=== PATIENT | female | born 1990 | race Hispanic/Latino ===

== ENCOUNTER 2020-09-23 02:04 | Emergency (ER) | payer OTHER, SELFPAY ==
[2020-09-23 02:08] VITALS: BP 144/90; PULSE 63; RESP 20; TEMP 36.9; O2SAT 96
--- NOTE | 2020-09-23 02:21 | ED.GENADULT ---
HPI - General Adult General Chief complaint: Headache Stated complaint: Headache, upper epigastric pain Time Seen by Provider: 09/23/20 02:14 History of Present Illness HPI narrative: Patient with 10-year-old female presents to emergency department chief complaint of headache. Patient reports that today she started having pain in her head reports she had a little bit of nausea with it reports she has photophobia. Patient also reports that he has had epigastric discomfort that she states does not radiate. The patient reports she has prior history of migraines history of Crohn's. The patient denies prior surgical history reports that she ate a tostada. Related Data Allergies Allergy/AdvReac Type Severity Reaction Status Date / Time No Known Allergies Allergy Unknown Unverified 09/29/15 23:15 Review of Systems Review of Systems: Narrative: A 10 system review of systems was completed on the patient and is negative except for what is stated in the HPI. Nursing and ancillary documentation was reviewed. [facility] Family History Family History (Updated 02/04/14 @ 07:13 by DOCTOR UNKNOWN) Father Family history of gout Family history of psoriasis Social History Social History Smoking status: Never smoker Alcohol intake: never Gender identity (if verbalized by the patient): Female Comments Crohn's migraines Exam Narrative: Exam Narrative: GENERAL: Well-appearing, well-nourished, and in no acute distress. HEAD: Normocephalic, atraumatic. EYES: PERRLA and EOMI. ENT: Nares clear, no rhinorrhea or epistaxis. Mucous membranes moist. NECK: Supple. CHEST: Clear to auscultation. No respiratory distress. HEART: Regular rate and rhythm. No murmur heard. Normal peripheral pulses. ABDOMEN: Soft, nontender, nondistended, normal active bowel sounds. EXTREMITIES: Normal range of motion. No edema. SKIN: Warm, dry, no rash. NEURO: No focal deficits. Alert and oriented x3. PSYCH: Normal mood and affect. Course Vital Signs Vital signs: Vital Signs Temperature 36.9 C 09/23/20 02:08 Pulse Rate 63 09/23/20 02:08 Respiratory Rate 20 09/23/20 02:08 Blood Pressure 144/90 H 09/23/20 02:08 Pulse Oximetry 96 09/23/20 02:08 Temperature 36.9 C 09/23/20 02:08 Pulse Rate 63 09/23/20 02:08 Respiratory Rate 20 09/23/20 02:08 Blood Pressure 144/90 H 09/23/20 02:08 Pulse Oximetry 96 09/23/20 02:08 Medical Decision Making Vital Signs Vital Signs: Vital Signs Temperature 36.9 C 09/23/20 02:08 Pulse Rate 63 09/23/20 02:08 Respiratory Rate 20 09/23/20 02:08 Blood Pressure 144/90 H 09/23/20 02:08 Pulse Oximetry 96 09/23/20 02:08 Temperature 36.9 C 09/23/20 02:08 Pulse Rate 63 09/23/20 02:08 Respiratory Rate 20 09/23/20 02:08 Blood Pressure 144/90 H 09/23/20 02:08 Pulse Oximetry 96 09/23/20 02:08 Lab Data Result diagrams: 09/23/20 02:43 09/23/20 02:42 Labs: Lab Results 09/23/20 09/23/20 09/23/20 Range/Units 02:42 02:43 03:01 WBC 8.2 (4.5-10.0) K/mm3 RBC 4.20 (4.2-5.4) M/mm3 Hgb 12.7 (12.0-15.0) g/dL Hct 37.7 (37.0-47.0) % MCV 89.8 (80-100) fl MCH 30.2 (26-34) pg MCHC 33.7 (32-36) g/dl RDW 12.8 (11.5-14.5) % Plt Count 223 (150-375) k/mm3 MPV 10.4 (7.4-10.4) fl Immature Gran % (Auto) 0.6 H (0-0.5) % Neut % (Auto) 45.0 L (45.5-73.1) % Lymph % (Auto) 44.5 H (18.3-44.2) % Iron % (Auto) 6.6 (2.6-8.5) % Eos % (Auto) 2.9 (0-4.4) % Baso % (Auto) 0.4 (0.2-1.2) % Lymph # (Auto) 3.66 H (0.9-3.2) K/mm3 Iron # (Auto) 0.5 (0.1-0.6) K/mm3 Eos # (Auto) 0.2 (0-0.3) K/mm3 Baso # (Auto) 0.0 (0.0-0.1) K/mm3 Abs Immat Gran (auto) 0.05 H (0.00-0.031) K/mm3 Absolute Neuts (auto) 3.7 (1.3-6.7) K/mm3 Absolute Nucleated RBC 0.0 (0.0-0.012) K/mm3 Nucleated RBC % 0.0 (0.0-0.2) % Sodium 139 (137-145) mmol/L [place]
[2020-09-23] MEDS: SODIUM CHLORIDE 0.9% IV 1,000 ML 999 ML IV CONT (02:33)
[2020-09-23] MEDS: diphenhydrAMINE HCl INJ 50 MG/ML VIAL IV PUSH (02:33)
[2020-09-23] MEDS: KETOROLAC 30 MG/ML VIAL (*BKC) IV PUSH (02:33)
[2020-09-23] MEDS: PROCHLORPERAZINE EDISYLATE 10 MG/2 ML VIAL IV PUSH (02:46)
[2020-09-23 02:52] LABS: Basophils Percent Auto 0.4 % (0.2-1.2); Eosinophils Absolute Auto 0.2 K/mm3 (0-0.3); Eosinophils Percent Auto 2.9 % (0-4.4); Hematocrit 37.7 % (37.0-47.0); Hemoglobin 12.7 g/dL (12.0-15.0); Immature Granulocyte Absolute 0.05 K/mm3 (0.00-0.031); Immature Granulocyte Percent A 0.6 % (0-0.5); Lymphocytes Absolute Auto 3.66 K/mm3 (0.9-3.2); Lymphocytes Percent Auto 44.5 % (18.3-44.2); Mean Corpuscular HGB Conc 33.7 g/dl (32-36); Mean Corpuscular Hemoglobin 30.2 pg (26-34); Mean Corpuscular Volume 89.8 fl (80-100); Mean Platelet Volume 10.4 fl (7.4-10.4); Monocytes Absolute Auto 0.5 K/mm3 (0.1-0.6); Monocytes Percent Auto 6.6 % (2.6-8.5); Neutrophils Absolute Auto 3.7 K/mm3 (1.3-6.7); Platelet Count Result 223 k/mm3 (150-375); Red Cell Distribution Width 12.8 % (11.5-14.5); White Blood Count 8.2 K/mm3 (4.5-10.0)
[2020-09-23 03:10] LABS: Alanine Aminotransferase 143 U/L (4-35); Albumin Level 4.5 g/dL (3.5-5.1); Alkaline Phosphatase 164 U/L (38-126); Anion Gap 7 mmol/L (8-16); Aspartate Amino Transferase 101 U/L (14-36); Bilirubin,Total 0.3 mg/dL (0.2-1.3); Blood Urea Nitrogen 15 mg/dL (7-17); Calcium 9.4 mg/dL (8.4-10.2); Carbon Dioxide 28 mmol/L (22-30); Chloride 104 mmol/L (98-107); Estimated CRCL calculation 146 ml/min; Estimated Glomerular Filt Rate > 60; Glucose 119 mg/dL (65-105); Lipase 89 U/L (23-300); Potassium 3.6 mmol/L (3.4-5.0); Sodium 139 mmol/L (137-145)
[2020-09-23 03:23] LABS: Add Urine Microscopic? YES; Appearance Urine Cloudy (Clear); Bacteria Urine Trace /hpf; Bilirubin Urine Negative (Negative); Blood Urine 1+ (Negative); Color Urine Yellow (Yellow); Glucose Urine UA Negative (Negative); Ketones Urine Negative (Negative); Leukocyte Esterase Ur Trace LEU/UL (Negative); Mucus Urine Rare /lpf; Nitrate Urine Negative (Negative); Protein Urine Negative (Negative); RBC Urine 0-2 /hpf (0-2); Specific Grav Ur 1.021 (1.001-1.035); Squamous Epithelial Cell Urine Few /hpf (Few); Urobilinogen Urine Negative mg/dL (<2.0); WBC Urine 0-3 /hpf
[2020-09-23 03:26] LABS: Lactic Acid Reflex 1.5 mmol/L (0.7-2.1)
[2020-09-23 03:48] VITALS: BP 128/79; PULSE 71; RESP 16; TEMP 36.9; O2SAT 100
== END 2020-09-23 03:49 | disposition home or self-care (01) ==
PROVIDERS: Emergency Provider Emergency Medicine
DX: G43.909 Migraine, unspecified, not intractable, without status migrainosus (principal)
CPT/HCPCS: 36415; 80053; 81001; 83605; 83690; 85025; 96361; 96374; 96375; 99284; J0780; J1200; J1885; J7030

== ENCOUNTER 2020-12-28 15:48 | Emergency (ER) | payer OTHER, SELFPAY ==
[2020-12-28 16:31] VITALS: BP 122/73; PULSE 87; RESP 16; TEMP 36.1; O2SAT 100
[2020-12-28 17:51] LABS: Basophils Percent Auto 0.4 % (0.2-1.2); Eosinophils Absolute Auto 0.3 K/mm3 (0-0.3); Eosinophils Percent Auto 4.1 % (0-4.4); Hematocrit 39.2 % (37.0-47.0); Immature Granulocyte Absolute 0.04 K/mm3 (0.00-0.031); Immature Granulocyte Percent A 0.5 % (0-0.5); Lymphocytes Absolute Auto 2.69 K/mm3 (0.9-3.2); Lymphocytes Percent Auto 34.4 % (18.3-44.2); Mean Corpuscular HGB Conc 33.2 g/dl (32-36); Mean Corpuscular Hemoglobin 30.1 pg (26-34); Mean Corpuscular Volume 90.7 fl (80-100); Mean Platelet Volume 9.9 fl (7.4-10.4); Monocytes Absolute Auto 0.6 K/mm3 (0.1-0.6); Monocytes Percent Auto 7.4 % (2.6-8.5); Neutrophils Absolute Auto 4.2 K/mm3 (1.3-6.7); Neutrophils Percent Auto 53.2 % (45.5-73.1); Platelet Count Result 233 k/mm3 (150-375); Red Blood Count 4.32 M/mm3 (4.2-5.4); Red Cell Distribution Width 13.1 % (11.5-14.5); White Blood Count 7.8 K/mm3 (4.5-10.0)
[2020-12-28 17:59] LABS: Add Urine Microscopic? YES; Appearance Urine Cloudy (Clear); Bacteria Urine Trace /hpf; Bilirubin Urine Negative (Negative); Blood Urine 1+ (Negative); Color Urine Yellow (Yellow); Glucose Urine UA Negative (Negative); Ketones Urine Negative (Negative); Leukocyte Esterase Ur 1+ LEU/UL (Negative); Mucus Urine Rare /lpf; Nitrate Urine Negative (Negative); Protein Urine Negative (Negative); RBC Urine 0-2 /hpf (0-2); Specific Grav Ur 1.021 (1.001-1.035); Squamous Epithelial Cell Urine Few /hpf (Few); Urobilinogen Urine Negative mg/dL (<2.0); WBC Urine 0-3 /hpf
[2020-12-28 18:01] LABS: Alanine Aminotransferase 102 U/L (4-35); Albumin Level 4.5 g/dL (3.5-5.1); Alkaline Phosphatase 119 U/L (38-126); Anion Gap 11 mmol/L (8-16); Aspartate Amino Transferase 75 U/L (14-36); Bilirubin,Total 0.4 mg/dL (0.2-1.3); Blood Urea Nitrogen 10 mg/dL (7-17); Calcium 9.8 mg/dL (8.4-10.2); Carbon Dioxide 24 mmol/L (22-30); Chloride 105 mmol/L (98-107); Estimated CRCL calculation 124 ml/min; Estimated Glomerular Filt Rate > 60; Glucose 92 mg/dL (65-110); Lipase 75 U/L (23-300); Sodium 140 mmol/L (137-145)
[2020-12-28 18:28] VITALS: BP 109/70; PULSE 76; RESP 15; O2SAT 97
[2020-12-28 18:34] VITALS: BP 107/90; PULSE 76; RESP 15; O2SAT 97
--- NOTE | 2020-12-28 19:10 | PC.NURSE ---
Report to esthela garcia at this time, she has assumed pt care, vss, call light in reach.
--- NOTE | 2020-12-28 19:35 | PC.NURSE ---
updated pt. no requests at this time. call light w/ in reach.
--- NOTE | 2020-12-28 19:36 | ED.ABDPAIN ---
HPI - Abdominal Pain General Chief Complaint: Abdominal Pain Stated Complaint: lower abd pain Time Seen by Provider: 12/28/20 18:20 Source: patient Mode of arrival: ambulatory Limitations: no limitations History of Present Illness HPI narrative: 30-year-old female Here for lower abdominal pain Has a stated history of Crohn's disease and apparently has been on mesalamine and sulfabenzamide previously but is on no medications now Patient states that about 4 hours before my evaluation she had pain in her lower right abdomen which lasted about 20 minutes before essentially being resolved She has some discomfort still with ambulation No other symptoms, denies nausea vomiting diarrhea constipation or bloating, no urinary symptoms dysuria hematuria, last menstrual period was 3 to 4 weeks ago Only surgical history is Related Data Allergies Allergy/AdvReac Type Severity Reaction Status Date / Time mesalamine [From Asacol] Allergy Unknown Verified 12/28/20 18:28 sulfabenzamide Allergy Unknown Verified 12/28/20 18:27 Review of Systems Review of Systems: All systems reviewed & are unremarkable except as noted in HPI and below Constitutional: Constitutional: Reports no additional constitutional complaints, Denies chills, Denies fever(s) and Denies headache(s) Eyes: Eyes: Reports no additional eye complaints and Denies change in vision ENT: Denies headache(s) and Denies sore throat Cardiovascular: Cardiovascular: Denies chest pain and Denies dyspnea Respiratory: Respiratory: Denies cough and Denies dyspnea Gastrointestinal: Gastrointestinal: Reports abdominal pain, Denies bloating, Denies constipation, Denies diarrhea, Denies nausea and Denies vomiting Genitourinary: Genitourinary: Denies abnormal vaginal bleeding, Denies urinary frequency, Denies nocturia, Denies dysuria, Denies pelvic pain, Denies flank pain and Denies vaginal discharge Musculoskeletal: Musculoskeletal: Denies deformity, Denies arthralgias, Denies joint swelling and Denies numbness Integumentary/Breasts: Skin/Breast: Denies rash and Denies wounds Neurologic: Denies headache(s), Denies focal weakness and Denies numbness Psychiatric: Psychiatric: Reports no additional psychiatric complaints Endocrine: Endocrine: Reports no additional endocrine complaints Hematologic/Lymphatic: Hematologic/Lymphatic: Reports no additional hematologic/lymphatic complaints Allergic/Immunologic: Allergic/Immunologic: Reports no additional allergic/immunologic complaints PMFSH Family History Family History (Updated 02/04/14 @ 07:13 by DOCTOR UNKNOWN) Father Family history of gout Family history of psoriasis Social History Social History Smoking status: Never smoker Alcohol intake: never Gender identity (if verbalized by the patient): Female Exam Const: General: cooperative, no acute distress and alert Orientation/consciousness: patient oriented x3 (alert) HENMT: Head: normal to inspection, normocephalic and atraumatic Ears: external ears normal General nose exam: no epistaxis Eyes: Conjunctivae: conjunctivae normal EOM: EOMs intact bilaterally Neck: Neck: normal visual inspection, supple and no JVD Resp: Effort & Inspection: normal respiratory effort and not labored Auscultation: clear to auscultation bilaterally, no rales, no rhonchi, no wheezes and other (BS =) Cardio: Rate: regular rate Rhythm: regular rhythm Heart sounds: no murmurs GI: GI Palp: Yes Soft to palpation, No Tenderness to palpation present (GI), No Guarding due to palpation present (GI) and No Rebound tenderness present : General: Yes no CVA tenderness Skin: General skin exam: normal color and no rashes or lesions noted Neuro: General: patient oriented x3 (alert) and moves all extremities Speech: normal speech Extrem: General: normal to inspection and no pedal edema Psych: Affect: normal affect Course Vital Signs Vital signs: Vital Signs [place]
[2020-12-28 19:40] VITALS: BP 118/66; PULSE 85; RESP 16; O2SAT 98
[2020-12-28 20:10] VITALS: BP 125/76; PULSE 86; RESP 14; O2SAT 98
== END 2020-12-28 20:14 | disposition home or self-care (01) ==
PROVIDERS: Emergency Medicine; Emergency Provider Emergency Medicine
DX: R10.30 Lower abdominal pain, unspecified (principal)
CPT/HCPCS: 36415; 80053; 81001; 81025; 83690; 85025; 99283

== ENCOUNTER 2022-09-05 09:46 | Emergency (ER) | payer OTHER, SELFPAY ==
[2022-09-05 09:49] VITALS: BP 168/103; PULSE 69; RESP 20; TEMP 36.7; O2SAT 100
--- NOTE | 2022-09-05 10:34 | ED.HEATRA ---
HPI - Head Injury General Chief complaint: Head Injury Stated complaint: hi days ago/coles Time Seen by Provider: 09/05/22 10:11 History of Present Illness HPI Narrative: Patient is a 31-year-old female who presents ER with left-sided headache. Patient was bending over while working at her job 4 days ago and struck her head on a door handle. She did not lose consciousness. She had throbbing headache on the left side since then. No change in vision or hearing. No nausea or vomiting. She is not on any blood thinners. No neck discomfort. Related Data Allergies Allergy/AdvReac Type Severity Reaction Status Date / Time mesalamine [From Asacol] Allergy Unknown Verified 12/28/20 18:28 sulfabenzamide Allergy Unknown Verified 12/28/20 18:27 Review of Systems Eyes: Eyes: Denies change in vision and Denies photophobia Gastrointestinal: Gastrointestinal: Denies nausea and Denies vomiting Neurologic: Denies syncope, Reports headache(s), Denies focal weakness and Denies numbness PMFSH Past Medical History Medical History (Updated 09/05/22 @ 10:39 by Saman Boykin MD) Migraine Surgical History Surgical History (Updated 09/05/22 @ 10:39 by Saman Boykin MD) History of delivery Family History Family History (Updated 02/04/14 @ 07:13 by DOCTOR UNKNOWN) Father Family history of gout Family history of psoriasis Social History Social History Smoking status: Never smoker Alcohol intake: never Gender identity (if verbalized by the patient): Female Exam Narrative: GENERAL: Well-appearing, well-nourished, and in no acute distress. HEAD: Normocephalic, atraumatic. EYES: PERRLA and EOMI. ENT: Mucous membranes moist. TMs normal bilaterally. CHEST: Clear to auscultation. No respiratory distress. HEART: Regular rate and rhythm. Normal peripheral pulses. EXTREMITIES: Normal range of motion. No edema. NEURO: Alert and oriented x3. No facial droop. Clear speech. PSYCH: Normal mood and affect. Course Course Emergency Course: Patient resting comfortably. Discussed tension headache versus mild concussion. Patient not felt to need a CT scan of the head and this was explained. Patient verbalized understanding treatment plan. Discharge home. Vital Signs Vital signs: Vital Signs Temperature 98.0 F 09/05/22 09:49 Pulse Rate 69 09/05/22 09:49 Respiratory Rate 20 09/05/22 09:49 Blood Pressure 168/103 H 09/05/22 09:49 Pulse Oximetry 100 09/05/22 09:49 Oxygen Delivery Room Air 09/05/22 09:49 Temperature 98.0 F 09/05/22 09:49 Pulse Rate 69 09/05/22 09:49 Respiratory Rate 20 09/05/22 09:49 Blood Pressure 168/103 H 09/05/22 09:49 Pulse Oximetry 100 09/05/22 09:49 Oxygen Delivery Room Air 09/05/22 09:49 Discharge Plan Discharge Clinical Impression: Concussion Patient Disposition: Home, Self-Care Condition: Stable Instructions: Concussion (ED) Additional Instructions: Return the ER if you lose consciousness, you cannot keep down food or water, develop fever over 100.4 ?F, or you have additional concerns. Take Tylenol or ibuprofen as needed for headache. Follow-up/Referrals: PHYSICIAN,LEARNING SUPPORT ASSISTANT [Primary Care Provider] - Margarita Melvin DO [Physician] - 1 Week
== END 2022-09-05 10:55 | disposition home or self-care (01) ==
PROVIDERS: Emergency Provider Emergency Medicine
DX: S06.0XAA Concussion with loss of consciousness status unknown, initial encounter (principal); W22.09XA Striking against other stationary object, initial encounter; Y99.0 Civilian activity done for income or pay
CPT/HCPCS: 99282

== ENCOUNTER 2023-03-05 18:24 | Emergency (ER) | payer OTHER, SELFPAY ==
[2023-03-05 18:45] VITALS: BP 137/99; PULSE 82; RESP 18; TEMP 36.9; O2SAT 100
== END 2023-03-05 21:18 | disposition left against medical advice (07) ==
DX: R10.13 Epigastric pain (principal)
CPT/HCPCS: 99199

== ENCOUNTER 2025-01-17 18:47 | Emergency (ER) | payer OTHER, SELFPAY ==
--- NOTE | ~2025-01-17 | CT_ITS ---
EXAMINATION: CT abdomen pelvis w con DATE: 01/17/2025 21:10 INDICATION: right sided abd pain TECHNIQUE: Computed tomography (CT) of the abdomen and pelvis was performed with 100 mL Omnipaque-350 intravenous contrast. Automated exposure control and iterative reconstruction technique were employe d. The dose-length product was 1332.43 mGy-cm. COMPARISON: None. FINDINGS: Lower thorax: 3 mm right middle lobe pulmonary nodule, likely granuloma Liver: Normal. Biliary/Gallbladder: Gallbladder is partially contracted, with mild wall thickening, hyperemia, and v palmer slight surrounding stranding. No bile duct dilation. Pancreas: No mass or duct dilation. Spleen: Normal. Adrenals:No mass. Kidneys: No suspicious mass, obstructing stone, or hydronephrosis. GI tract: No small or large bowel dilation. Small uncomplicated appearing diverticulum projecting off the cecum. Normal appendix. Mesentery/Peritoneum: No ascites, mass, or free air. Retroperitoneum: No mass. Pelvis: Mostly empty urinary bladder. Normal uterus. 6.6 cm simple appearing left ovarian cyst. 3.3 c m indeterminate density right ovarian cystic lesion. Soft Tissues: Small fat-containing uncomplicated umbilical and left inguinal hernias. Bones: No acute osseous finding. IMPRESSION: Contracted gallbladder which limits evaluation, with mucosal hyperemia and the suggestion of mild inf lammatory change. Correlate for signs/symptoms of acute cholecystitis. 6.6 cm simple appearing left ovarian cyst. 3.3 cm indeterminate density right ovarian cyst, likely representing a corpus luteum, endometrioma, o r hemorrhagic cyst. Reviewed, dictated and finalized at location K. IMPRESSION: Contracted gallbladder which limits evaluation, with mucosal hyperemia and the suggestion of mild inflammatory change. Correlate for signs/symptoms of acute c holecystitis. 6.6 cm simple appearing left ovarian cyst. 3.3 cm indeterminate density right ovarian cyst, likely representing a corpus l uteum, endometrioma, or hemorrhagic cyst.
--- OUTSIDE RECORDS SUMMARY | 2025-01-17 18:50 | XMS_ITS | Clinical Summary ---
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 Active nadoloL (CORGARD) 20 mg tabletIndications :Primary hypertension Take 1 tablet (20 mg total) by mouth daily 30 tablet 11 5 12/19/19 26 Active phentermine (ADIPEX-P) 37.5 mg tabletIndications :Class 2 severe obesity due to excess calories with serious comorbidity and body mass index (BMI) of 39.0 to 39.9 in adult (HCC) Take 1 tablet (37.5 mg total) by mouth daily 30 tablet 2 5 03/18/20 25 Active Active Problems Problem Noted Date Diagnosed Date Class 2 severe obesity due t o excess calories with serious comorbidity and body mass index (BMI) of 38.0 to 38.9 in adult 06/12/2024 Early hepatic fibrosis 01/12/2024 Crohn's disease with complication 09/17/2023 High risk medications (not anticoagulants) long- term use 05/23/2022 Weight loss counseling, encounter for 02/24/2022 Assessment & Plan (02/24/2022 2:35 PM CDT): Discussed that significant health benefits/risk reduction may be seen with even 5% weight loss. Discussed that weight loss will require calorie deficit. Calculated basal metabolic rate and estimated total energy expenditure; discussed 500-1000 kcal/day deficit to lose 1-2 lb per week. Asked to keep detailed food diary for at least 1 week and bring to next visit. Discussed setting SMART goals. Discussed relatively small, although significant, role of exercise in weight loss; greater importance in weight maintenance as shown in Look Ahead study and National Weight Control Registry. Discussed recommendation/goal for 150 minutes per week moderate-intensity aerobic exercise. Metabolic and nutritional disorder 02/24/2022 Assessment & Plan (02/24/2022 2:35 PM CDT): Labs. Discussed increased risk for DM in setting of obesity and FHx DM. Discussed insulin resistance including effect on weight and risk for progression to diabetes. Recommended low-carb, low-glycemic diet; choose whole grains and avoid more highly processed carbohydrates. Discussed potential benefits of this w/r/t gut microbiome. Referred to ADA and [employer] websites for additional information on topics including glycemic index/carbohydrate choices, protein sources. More detailed recommendations pending review of labs and food record. Well woman exam 12/08/2021 Overview (12/08/2021): -Reviewed general breast health. -Pap Negative 2019- Deferred. Due 2022 w/HPV. -NG/CT/Trich Screening-declined-. -HIV/HepC/RPR Screening-declined. -Primary labs per PCP. -Follow up in 1 year or sooner if needed. Irregular menses 12/08/2021 Overview (12/08/2021): -Day 21 progesterone ordered (12/27/21) to assess for ovulation. -In the mean time encouraged ovulation predictor kits. -Await progesterone results for follow up plan (ie: ovulation induction) if needed. Patient agreeable with plan. Fatigue 10/24/2021 Assessment & Plan (02/24/2022 2:34 PM CDT): Labs. Discussed importance of adequate sleep; good sleep hygiene in controlling weight as well as for overall health. Crohn's disease of large intestine without compl ication 10/17/2017 Overview (09/17/2023): Year of diagnosis: 2009. Year symptoms began: ?. Phenotype: Inflammatory (B1) without perianal disease. Distribution: ileocolonic (L3) without upper GI disease (L4). Extraintestinal manifestations: arthralgias. Complications: none. Prior treatments: Remicade ([id number] did well but stopped at time due to insurance issues), Humira ([id number] lack of response), mesalamine-pancreatitis, sulfasalazine-allergic Current treatment: Entyvio (started 2017) on every 8 week dosing. Prior surgeries: none. Endoscopies: Colonoscopy 01/2021 Simple Endoscopic Score for Crohn's Disease: 0, mucosal inflammatory changes secondary to Crohn's disease, in remission. Biopsied. PATH: . Small intestine, terminal ileum, endoscopic biopsy - No histopathologic abnormality - No acute or chronic ileitis, ulcers, or granulomas - No dysplasia or malignancy B.. Large intestine, random colon, endoscopic biopsy - No histopathologic abnormality - No acute colitis, chronic colitis, granulomas, or microscopic colitis - No dysplasia or malignancy Colonoscopy 01/2019 Simple Endoscopic Score for Crohn's Disease: 0, mucosal inflammatory changes secondary to Crohn's disease with colonic involvement and secondary to Crohn's disease, in remission. Biopsied. - The distal rectum and anal verge are normal on retroflexion view. PATH: Terminal ileum, biopsy - Small bowel within normal limits - No granulomas or dysplasia B. Colon, random, biopsy - Focal mildly active non-specific colitis, characterized by rare foci of cryptitis - No granulomas or dysplasia Colonoscopy 2017 active ileal and colonic inflammation noted prior to starting entyvio Imaging: none recent. 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 Almaraz with history of Crohn's here for a return office visit for nonalcohol-related fatty liver disease (biopsy borderline for steatohepatitis with early hepatic fibrosis). She follows with Dr. Clark. She presents today for medication follow up. She has not taken her Phentermine in 1 month. She has lost 2 lbs. She will refill at her pharmacy. Blood pressure today manual recheck was 125/88. Follow up scheduled with Dr. Clark. Resolved Problems Problem Noted Date Diagnosed Date Resolved Date Crohn's disease of both smal l and large intestine without complication (CMS/HCC) 12/01/2018 03/20/2021 Overview (12/01/2020): Year of diagnosis: 2009. Year symptoms began: 2009. Phenotype: Inflammatory (B1) without perianal disease. Distribution: ileocolonic (L3) without upper GI disease (L4). Extraintestinal manifestations: none. Complications: hx NAFLD. Prior treatments: mesalamine (pancreatitis), Remicade ([id number]).,Humira Current treatment: Entyvio every 8 weeks (started 09/2017). Prior surgeries: none. Endoscopies: Colonoscopy 01/2019 Simple Endoscopic Score for Crohn's Disease: 0, mucosal inflammatory changes secondary to Crohn's disease with colonic involvement and secondary to Crohn's disease, in remission. Biopsied. - The distal rectum and anal verge are normal on retroflexion view. PATH: Terminal ileum, biopsy - Small bowel within normal limits - No granulomas or dysplasia B. Colon, random, biopsy - Focal mildly active non-specific colitis, characterized by rare foci of cryptitis - No granulomas or dysplasia . Imaging: MRI 2016 Active inflammation involving the majority of the colon as described, greatest on the left side. No active small bowel disease IBD HEALTH MAINTENANCE Had covid vaccination elevated temperature 09/22/2018 09/26/2018 Overview (09/22/2018): WAC 09/22/18 - patient with 2 elevated temperatures day #6, afebrile, mild abdominal pain with no discernible pattern of exacerbation/alleviation well controlled on home analgesic regimen - UA neg, exam wnl exc for mild fundal tenderness; WBC 7.5 - TVUS w/ EMS 2.9, no concern for retPOC or large clot - encouraged elevation/compression of legs for edema management - continue symptom mgt with tylenol, ibuprofen, oxycodone - given strict return precautions for return, including fever, abd pain, foul lochia delivery delivered 09/14/2018 09/26/2018 Overview (09/19/2018): # ID: Afebrile. No signs/symptoms of infection. S/p Ancef and Azithromycin with Ancef re-dosed for EBL. Rubella NI, for MMR # Heme: EBL 1400mL. No symptoms acute blood loss anemia. Hgb 11.1 -> 9.2 -> 8.6 -> 8.0 sp equilibration, will continue to monitor for s/sx ABLA. Start oral iron, to be continued at discharge. # CV/Pulm: Vital signs stable, within normal limits. Multiple mild range BP in labor, normotensive . Will CTM and send labs as indicated. Asymptomatic. History of asthma on albuterol PRN. Had chest pain on POD#1 that has since resolved, low O2 sats with mild SOB (improving), denies chest pain. CTPE negative for large PE (cannot r/o small subsegmental) w/ small pleural effusion and atelectasis. Trop neg. Rec aggressive pulm toilet, ambulation. CTM closely, will consider TTE and BNP today if SOB persists. # GI/: Tolerating PO. Voiding spontaneously. History of Crohn's on vedolizumab. # Pain: Controlled with above regimen. # DVT prophylaxis: SCDs and early ambulation, ppx LVX initiated POD#2 # MOC: Progestin-only pills # MOF: # Disposition: Anticipate discharge later today or tomorrow. 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 Rx provided. 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 Monistat/clotrimazole cream sent in x7 days. We also took HSV culture given small crop of vesicles on majora. Supervision of high risk pre gnancy, antepartum 02/27/2018 09/26/2018 Overview (09/04/2018): [] Co-management vs. [x] Full M Care; [x] Dating Criteria: LMP c/w 11 wk US [x] Labs: O+/ Antibody neg, Rub Non-immune, RPR NR, Hep B neg, GC/CT neg/neg [x] Genetic Screening: Declined amniocentesis at 15 weeks NIPT negative, female [x] CBC: 35.2/12.0/ plat 205 /Hgb electrophoresis:normal [x] UCx repeat culture negative [x] Pap: WNl HPV neg 08/2016 2nd Tri Labs: [x] Anatomy ultrasound- complete and wnl [x] CBC: 12.1/36.9 plt 191 [x] 1hr gtt at 24-28wks: GTT 115, H/H 36.9/12.1, plat 191 [x] Flu Shot (Sep-Dec) [x] Tdap (27-36wks) counseled, next visit 3rd Tri Labs: [x] CBC/HIV/RPR: H/H 35.0/11.7, plat 176, HIV neg, RPR NR [x] GBS: negative Counselling [x] MOD: anticipate vaginal IOL 09/14 @ 2000 [x] Place of delivery: [facility] [] MOC: counseled, likely POPs [x] Method of feeding: breast [x] School Lunch Monitor: [x] PP Depression Discussed Assessment & Plan (08/29/2018 7:59 AM CDT): Reports muscle spasms with movement that started last night. Denies pelvic pressure or contractions. Recommend belly band for support and stretching. Crohn's disease of intestine 12/24/2017 12/01/2020 Overview (07/31/2018): Added automatically from request for surgery [id number] BMI 36.0-36.9,adult 11/05/2017 03/25/20 20 Crohn's disease 10/10/2017 12/01/2020 Prior with demise 10/10/2017 03/20/2021 Overview (06/17/2018): - previous was complicated by a cystic hygroma, normal GENERAL MACHINIST/karyotype, and heterotaxy with multiple anomalies. 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 She has been previously already counseled regarding this and knows her risk of recurrence is low. 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 General weight loss/lifestyle modification strategies discussed (elicit support from others; identify saboteurs; non-food rewards, etc). Diet interventions: as noted. Recommendations provided in AVS. Informal exercise measures discussed, e.g. taking stairs instead of elevator. Regular aerobic exercise program discussed. More detailed recommendations pending review of labs and food record. Anemia 06/07/2010 03/20/2021 Overview (12/05/2017): Overview: H and H 10.8/32.1. Probably 2/2 chronic inflammation vs iron deficiency 2/2 blood loss.the Iron studies -normal.to start iron supplements Encounters Date Type Department Care Team Description 01/12/2025 Documentation [facility] Gastroenterology [address] [place] [address] 12th [place] [address] Rosita Taylor, JENISE Treatment Plan Update (01/08/2025 rov) 01/08/2025 3:30 PM CDT Telemedicine [facility] Gastroenter[facility] [address] [place] [address] 12th [place] [address] [place] [address] Mary Sheets NP High risk medications (not anticoagulants) long-term use (Primary Dx); Crohn's disease of large intestine without complication (HCC) 12/18/2024 9:45 AM CDT Procedure visit [facility] Gastroenterology [address] [place] [address] Floor [address] [place] [address] Hepatic steatosis 12/18/2024 9:30 AM CDT Office Visit [facility] Gastroenter[facility] [address] Floor [address] [place] [address] Wilton Clark MD Primary hypertension (Primary Dx); Hepatic steatosis; High risk medications (not anticoagulants) long-term use; Class 2 severe obesity due to excess calories with serious comorbidity and body mass index (BMI) of 38.0 to 38.9 in adult (HCC); Early hepatic fibrosis; NAFLD (nonalcoholic fatty liver disease); Class 2 severe obesity due to excess calories with serious comorbidity and body mass index (BMI) of 39.0 to 39.9 in adult (HCC) 12/18/2024 Results Follow-Up [facility] Gastroenter[facility] [address] [place] [address] [place] [phone] Wilton Clark MD Liver Elastography w/o Imaging W/I&R -[facility] (All Locations) 11/30/2024 10:40 AM CDT Office Visit [facility] Gastroenterology [address] [facility] [address] [place] [address] Elsy Delatorre NP NAFLD (nonalcoholic fatty liver disease) (Primary Dx) 11/30/2024 Telephone [facility] Gastroenter[facility] [address] [facility] [address] [place] [address] Elsy Delatorre NP 11/20/2024 9:50 AM CDT - 11/20/2024 11:59 PM CDT Hospital Encounter [facility] [address] [place] [address] Crohn's disease of large intestine without complication (HCC) Discharge Disposition: Discharge to home or self care 11/20/2024 9:30 AM CDT Infusion [facility] Infusion Therapy [address] [facility] 2nd Floor [address] [place] [address] Crohn's disease of large intestine without complication (HCC) (Primary Dx) 11/17/2024 Documentation [facility] Gastroenterology [address] [facility] 12th [place] [address] Rosita Taylor, JENISE Clinical Visit from Last 3 Months Immunizations Immunization Administration Dates Next Due Hep A / Hep B 07/19/2015 Hep B Vaccine 11/20/2016,08/25/2015 Influenza, Quadrivalent, Amanda l Culture-based MDCK, Antibiotic Free, Intramuscular 05/19/2018 Influenza, Quadrivalent, Amanda l Culture-based MDCK, Preservative Free, Antibiotic Free, Intramuscular 03/29/2020 Influenza, Trivalent, Preservative Free, Intramu scular 03/13/2012 MMR 09/19/2018 Pneumococcal Conjugate PCV 13 11/20/2016 Pneumococcal Polysaccharide PPV23 12/01/2018, Surgical History Surgery Date Site/Laterality Comments IN COLONOSCOPY FLX DX W/KELY J SPEC WHEN PFRMD Complete Colonoscopy - (Added by TW Conv) IN ESOPHAGOGASTRODUODENOSCOP Y TRANSORAL DIAGNOSTIC Diagnostic Esophagogastroduodenoscopy - (Added by TW Conv) DILATION AND EVACUATION 06/10/2017 - 06/09/20 18 UPPER GASTROINTESTINAL ENDOSCOPY COLONOSCOPY SECTION 09/09/19 19 Medical History Medical History Date Comments Drug-induced acute pancreati tis without infection or necrosis Drug-induced acute pancr eatitis - (Added by TW Conv) Anemia Migraine Crohn's disease (HCC) as of 01/23 - 3-4 episodes of blood in stool and diarrhea in last 30 days Asthma well controlled Prior with demise 10/10/2017 - previous was complicated by a cystic hygroma, normal GENERAL MACHINIST/karyotype, and heterotaxy with multiple anomalies. 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 She has been previously already counseled regarding this and knows her risk of recurrence is low. 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, antepartum 05/19/2018 Family History Medical History Relation Name Comments Gout Father Psoriasis Father Hypertension Maternal Grandfather Family history of hypertension - Relation: Grandfather (Added by TW Conv)/Family history of hypertension - Relation: Grandfather (Added by TW Conv) Stroke Maternal Grandfather Family history of cerebrovascular accident (CVA) - Relation: Grandfather (Added by TW Conv)/Family history of cerebrovascular accident (CVA) - Relation: Grandfather (Added by TW Conv) Anemia Maternal Grandmother Rheum arthritis Mother Family histo ry of rheumatoid arthritis - (Added by TW Conv)/Family history of rheumatoid arthritis - (Added by TW Conv) Rheum arthritis Other 1 Family histo ry of rheumatoid arthritis - (Added by TW Conv) Diabetes Other 2 Family history of diabetes mellitus - 10/01/13-EW (Added by TW Conv) Rheum arthritis Other 3 Family histo ry of rheumatoid arthritis - (Added by TW Conv) Rheum arthritis Other 4 Family histo ry of rheumatoid arthritis - (Added by TW Conv) Diabetes Other 5 Family history of diabetes mellitus - 10/01/13-EW (Added by TW Conv) Anemia Paternal Grandmother Relation Name Status Comments Father Alive Maternal Grandfather Maternal Grandmother Mother Alive Other 1 Other 2 Other 3 Other 4 Other 5 Paternal Grandmother Social History Tobacco Use Types Packs/Day Years Used Date Smoking Tobacco: Never Smokeless Tobacco: Never Tobacco Cessation:Counseling Given: Not Answered Alcohol Use Standard Drinks/Week Comments Never 0 (1 standard drink = 0.6 oz pur e alcohol) Humiliation, Afraid, Rape, and Kick questionnair e Answer Date Recorded Within the last year, have y ou been afraid of your partner or ex-partner? No 12/08/2021 Within the last year, have y ou been humiliated or emotionally abused in other ways by your partner or ex-partner? No Within the last year, have y ou been kicked, hit, slapped, or otherwise physically hurt by your partner or ex-partner? No 12/08/2021 Within the last year, have y ou been raped or forced to have any kind of sexual activity by your partner or ex-partner? No 12/08/2021 Social Connection and Isolation Panel Answer Date Recorded In a typical week, how many times do you talk on the phone with family, friends, or neighbors? Three times a week 12/08/2021 How often do you get togethe r with friends or relatives? Three times a week 12/08/2021 Attends [employer] Services Not on file 12/08 Active Member of Clubs or Organizations Not on f ile 12/08/2021 Attends Club or Organization Meetings Not on sandip e 12/08/2021 Marital Status Not on file 12/08/2021 AUDIT-C Answer Date Recorded Q1: How often do you have a drink containing alc ohol? Monthly or less 11/30/2024 Average Number of Drinks Not on file 025 Frequency of Binge Drinking Not on file 11/09 Overall Financial Resource Strain (CARDIA) Answe r Date Recorded How hard is it for you to pa y for the very basics like food, housing, medical care, and heating? Not hard at all 12/08/2021 [facility] [place] [facility] - Occupational Stress Questionnaire Answer Date Recorded Do you feel stress - tense, restless, nervous, or anxious, or unable to sleep at night because your mind is troubled all the time - these days? To some extent 12/08/2021 Exercise Vital Sign Answer Date Recorde d On average, how many days pe r week do you engage in moderate to strenuous exercise (like a brisk walk)? 3 days 12/08/2021 On average, how many minutes do you engage in exercise at this level? 20 min 12/08/2021 Hunger Vital Sign Answer Date Recorded Within the past 12 months, y ou worried that your food would run out before you got the money to buy more. Never true 12/09/19 22 Within the past 12 months, t he food you bought just didn't last and you didn't have money to get more. Never true 12/08/2021 PRAPARE - Transportation Answer Date Re corded In the past 12 months, has l ack of transportation kept you from medical appointments or from getting medications? No 06/2021 In the past 12 months, has l ack of transportation kept you from meetings, work, or from getting things needed for daily living? No 12/08/2021 Housing Stability Vital Sign Answer Shaheen e Recorded In the last 12 months, was t here a time when you were not able to pay the mortgage or rent on time? No 12/08/2021 Number of Places Lived in the Last Year Not on f ile 12/08/2021 In the last 12 months, was t here a time when you did not have a steady place to sleep or slept in a halfway (including now)? No 12/08/2021 Personal Safety Answer Date Recorded Have you ever been in or are you currently in a harmful physical or emotional relationship or is someone making you feel afraid or unsafe? 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 Not on file Not on file Obstetrics History Para Term AB IAB SAB Ectopic Multiple Livin g Live Births 2 2 1 1 0 1 1 Date Outcome GA Total Labor Labor/2nd/3rd Weight Sex Type Anes PTL Kathy A1 A5 Name Clin 018 20w 0d D&E Demis e 019 Term 39w 2d 24h 18m 23h 34m/0h 44m/ 3 kg (6 lb 9.8 oz) F CS-LT ranv Epidu ral,G enera l N Livin g 1 8 Tara ALMARAZ Bethan y Ann, MD Delivery Location:[facility] ([facility] 0265) Comments 2018 Fetus with heterotaxy ( See MFM PPC note from 12/09/17) Last Filed Vital Signs Vital Sign Reading Time Taken Comments Blood Pressure 148/96 12/18/2024 9:53 AM CDT Pulse 80 12/18/2024 9:53 AM CDT Temperature 36.8 C (98.3 F) 12/18/2024 9:53 AM CDT Respiratory Rate 16 10/31/2023 9:57 AM CDT Oxygen Saturation 99% 12/18/2024 9:53 AM CDT Inhaled Oxygen Concentration - - Weight 93 kg (205 lb) 12/18/2024 9:53 AM CDT Height 154.9 cm (5' 1) 12/18/2024 9:53 AM CDT Body Mass Index 38.73 12/18/2024 9:53 AM CDT Plan of Treatment Health Maintenance Due Date Last Done Comments Depression Screening 1991 DTaP/Tdap/Td Vaccine (1 - Tdap) 09/19/2002 Varicella Vaccines (1 of 2 - 13+ 2-dose series) 09/19/2004 HPV Vaccines (1 - 3-dose SCD M series) 09/19/2018 Cervical Cancer Screening 02/03/2021 02/04/2020 Regular Well Visit/Exam 18-64 12/08/2022 12/08/2021 Influenza Vaccine (#1) 2025 5, 03/29/2020, 05/19/2018, Additional history exists Pneumococcal vaccine <65 (3 of 3 - PCV20 or PCV21) 09/19/2041 12/01/2018, 11/20/2016, 10/01/2013 Hepatitis C Screening Completed 03/16/2020 Procedures Procedure Name Priority Date/Time Associated Diagnosis Comments LIVER ELASTOGRAPHY W/O IMAGING W/I&R Routine 12/18/2024 10:00 AM CDT Hepatic steatosis EGFR Routine 11/20/2024 9:50 AM CDT Crohn's disease of large intestine without complication (HCC) DIFFERENTIAL AUTO Routine 11/20/2024 9:5 0 AM CDT Crohn's disease of large intestine without complication (HCC) CBC WITH AUTO DIFFERENTIAL Routine 11/20/2024 9:50 AM CDT Crohn's disease of large intestine without complication (HCC) COMPREHENSIVE METABOLIC PANEL Routine 11/20/2024 9:50 AM CDT Crohn's disease of large intestine without complication (HCC) CRP (ACUTE PHASE) Routine 11/20/2024 9:5 0 AM CDT Crohn's disease of large intestine without complication (HCC) T-SPOT.TB Routine 11/20/2024 9:50 AM CDT Crohn's disease of large intestine without complication (HCC) HEPATITIS C ANTIBODY Routine 03/16/2020 12:04 PM CDT Nonalcoholic fatty liver disease PAP WITH REFLEX TO HIGH RISK HPV Routine 02/04/2020 3:13 PM CDT from Last 3 Months or Most Recently Relevant to Health Maintenance Results * Liver Elastography w/o Imaging [facility]&R -[facility] (All Locations) (12/18/2024 10:00 AM CDT) Anatomical Region Laterality Modality Other us Wilton Clark MD GI PROCEDURE ORDERABLES Final Result * T-SPOT.TB Blood (11/20/2024 9:50 AM CDT) T-SPOT.TB Negative SeeBelow Comment: Normal Value: Negative A negative test result does not exclude the possibility of exposure to or infection with Mycobacterium tuberculosis (M. tuberculosis). Patients with recent exposure to TB infected individuals exhibiting a negative T-SPOT.TB result should be considered for retesting within 6 weeks or if other relevant clinical symptoms indicate. Results from T-SPOT.TB testing must be used in conjunction with each individual's epidemiological history, current medical status, and results of other diagnostic evaluations. The T-SPOT.TB test is qualitative and results are reported as positive, borderline or negative, given that the test controls perform as expected. In line with the Centers for Disease Control and Prevention's 2010 recommendation to report quantitative measurements alongside the qualitative result, the laboratory provides spot counts for informational purposes only. The T-SPOT.TB test should not be interpreted as a quantitative test. T-SPOT.TB Panel A Spot Count 2 [facility] T-SPOT.TB Panel B Spot Count 0 [facility] T-SPOT.TB Negative Control Passed [facility] T-SPOT.TB Positive Control Passed [facility] Comment: Test Performed at: [place] [address] LEONARDO CORRAL,PHD Blood 11/20/2024 9:50 AM CDT 11/20/2024 3:26 PM CDT Mile Gandhi MD LAB MICROBIOLOGY - GENERAL OR DERABLES Final Result [facility] Department [place] [address] * eGFR (11/20/2024 9:50 AM CDT) eGFR >90 >=60 mL/min/1. 73 m2 Comment: Interpretive Data Reference Interval Normal >/= 90 mL/min/1.73m2 Mildly decreased* 60 - 89 mL/min/1.73m2 Mildly to moderately decreased 45 - 59 mL/min/1.73m2 Moderately to severely decreased 30 - 44 mL/min/1.73m2 Severely decreased 15 - 29 mL/min/1.73m2 Kidney Failure < 15 mL/min/1.73m2 *Relative to young adult level Estimated glomerular filtration rate is determined by the 2020 CKD-EPI equation recommended by the National Kidney Foundation (A Unifying Approach to GFR Estimation: Recommendations of the NKF-ASK Task Force on Reassessing the Inclusion of Race in Diagnosing Kidney Disease, JASN 2020). The CKD-EPI equation should not be used for patients with unstable renal function and has not been validated in children and those over 70. Current interpretive data was last reviewed 2021. Blood 11/20/2024 9:50 AM CDT 11/20/2024 2:53 PM CDT us Mile Gandhi MD LAB BLOOD ORDERABLES Final Re sult [facility] Department [place] [address] * Differential, auto (11/20/2024 9:50 AM CDT) Neutrophil abs 3.25 1.50 - 6.50 K/cumm Imm gran abs 0.03 0.00 - 0.10 K/cumm [facility] Lymphocyte abs 2.75 0.80 - 3.30 K/cumm [facility] Monocyte abs 0.57 0.20 - 0.80 K/cumm [facility] Eosinophil abs 0.32 0.00 - 0.50 K/cumm [facility] Basophil abs 0.03 0.00 - 0.10 K/cumm [facility] Neutrophil pct 46.8 % [facility] Comment: Interpretive Data Percent cell count reference ranges are not reported, since discordance with absolute values may lead to misinterpretation of CBC data. Current Interpretive Data was last revised on 2017. Imm gran pct 0.4 % [facility] Comment: Interpretive Data Percent cell count reference ranges are not reported, since discordance with absolute values may lead to misinterpretation of CBC data. Current Interpretive Data was last revised on 2017. Lymphocyte pct 39.6 % [facility] Comment: Interpretive Data Percent cell count reference ranges are not reported, since discordance with absolute values may lead to misinterpretation of CBC data. Current Interpretive Data was last revised on 2017. Monocyte pct 8.2 % [facility] Comment: Interpretive Data Percent cell count reference ranges are not reported, since discordance with absolute values may lead to misinterpretation of CBC data. Current Interpretive Data was last revised on 2017. Eosinophil pct 4.6 % [facility] Comment: Interpretive Data Percent cell count reference ranges are not reported, since discordance with absolute values may lead to misinterpretation of CBC data. Current Interpretive Data was last revised on 2017. Basophil pct 0.4 % [facility] Comment: Interpretive Data Percent cell count reference ranges are not reported, since discordance with absolute values may lead to misinterpretation of CBC data. Current Interpretive Data was last revised on 2017. Blood 11/20/2024 9:50 AM CDT 11/20/2024 2:38 PM CDT Mile Gandhi MD LAB BLOOD ORDERABLES Final Re sult [facility] Department [place] [address] * (ABNORMAL) CBC with auto differential (11/20/2024 9:50 AM CDT) WBC 6.95 3.80 - 9.90 K/cumm Hgb 12.3 11.9 - 15.5 g/dL [facility] Hct 38.5 35.6 - 45.5 % [facility] Plt 263 150 - 400 K/cumm [facility] MPV 10.8 9.1 - 12.3 fL [facility] RBC 4.49 3.90 - 5.20 M/cumm [facility] MCV 85.7 81.3 - 96.4 fL [facility] MCH 27.4 27.1 - 33.3 pg [facility] MCHC 31.9(L) 32.3 - 35.7 g/dL [facility] RDW CV 15.1(H) 11.1 - 14.9 % [facility] RDW SD 47.2 35.7 - 48.1 fL [facility] NRBC abs 0.00 0.00 - 0.01 K/cumm [facility] Blood 11/20/2024 9:50 AM CDT 11/20/2024 2:38 PM CDT Mile Gandhi MD LAB BLOOD ORDERABLES Final Re sult Performing Organization Address City/[facility]/ZIP Co de Phone Number [facility] Department [place] [address] * CRP (acute phase) (11/20/2024 9:50 AM CDT) [facility] CRP 1.9 <=10.0 mg/L Blood 11/20/2024 9:50 AM CDT 11/20/2024 2:38 PM CDT Mile Gandhi MD LAB BLOOD ORDERABLES Final Re sult Performing Organization Address [facility] de Phone Number [facility] Department [place] [address] * (ABNORMAL) Comprehensive metabolic panel (11/20/2024 9:50 AM CDT) [facility] Sodium 139 135 - 145 mmol/L Potassium, pl 3.8 3.3 - 4.9 mmol/L [facility] Chloride 104 97 - 110 mmol/L [facility] CO2 23 22 - 32 mmol/L [facility] Anion gap 12 2 - 15 mmol/L [facility] BUN 9 6 - 25 mg/dL [facility] Creatinine 0.57(L) 0.60 - 1.10 mg/dL [facility] Glucose 79 70 - 199 mg/dL [facility] Comment: Interpretive Data Fasting glucose >/= 126 mg/dl is diagnostic for diabetes. Fasting is defined as no caloric intake for at least 8 hours. Fasting glucose between 100 mg/dl to 125 mg/dl is diagnostic of prediabetes. In a patient with classic symptoms of hyperglycemia or hyperglycemic crisis, a random glucose >/= 200 mg/dl is diagnostic for diabetes. In the absence of unequivocal hyperglycemia, results should be confirmed by repeat testing. The classification and Diagnosis of Diabetes Diabetes Care 2021; 46: S19-S40. Current interpretive data was last revised 2022. Calcium 9.3 8.5 - 10.3 mg/dL [facility] Bilirubin, total 0.4 0.1 - 1.2 mg/dL [facility] Protein, pl 7.8 6.5 - 8.5 g/dL [facility] Albumin 4.2 3.5 - 5.0 g/dL [facility] Alk phos 138(H) 40 - 130 Units/L [facility] ALT 57(H) 7 - 45 Units/L [facility] AST 53(H) 10 - 45 Units/L [facility] Blood Venous blood specimen / Unknown 11/20/2024 9:50 AM CDT 11/20/2024 2:38 PM CDT Mile Gandhi MD LAB BLOOD ORDERABLES Final Re sult [facility] Department [place] [address] * Hepatitis C antibody (03/16/2020 12:04 PM CDT) Hep C Ab Nonreactive Nonreactive [facility] Comment:Antibodies to HCV no t detected. Does NOT exclude the possibility of recent exposure to HCV. Blood specimen (specimen) 03/16/2020 12:04 PM CDT 03/16/2020 12:33 PM CDT Wilton Clark MD LAB MICROBIOLOGY - GENER AL ORDERABLES Edited Result - Final [facility] Department [place] [address] * Pap w/reflex to High Risk HPV if ASCUS and patient 21-29 years old (02/04/2020 3:13 PM CDT) 02/04/2020 3:13 PM CDT 02/04/2020 3:41 PM CDT Narrative 02/09/2020 9:57 AM CDT EPIC results best viewed via link to PDF [facility] D[facility] [place] [id number] CYTOPATHOLOGY REPORT FINAL Patient Name: BRYSON ALMARAZ Gender: F : 1990 (Age: 29) Address: [address] [place] [address] Hospital #: [id number] Service: Gynecology Location: [facility] Patient Type: [facility] Ancillary Taken: 02/04/2020 Received: 02/04/2020 Accessioned: 02/05/2020 Reported: 02/09/2020 Physician(s): TEX Rodríguez FINAL INTERPRETATION SOURCE OF SPECIMEN: Liquid based Thin Prep pap with Reflex HPV STATEMENT OF ADEQUACY: - Satisfactory for evaluation - Endocervical cells/transformation zone sample present GENERAL CATEGORY: - Negative for squamous intraepithelial lesion or malignancy cad/02/09/2020 09:57 Tiffanie Figueroa M.S.,SADIA(ASCP) Report Electronically Reviewed and Signed Out By Tiffanie Figueroa M.S.,SADIA(ASCP) 02/09/2020 09:57:37 Cervicovaginal Cytology (Pap Test) Disclaimer: The Pap test is a screening test used to detect cervical cancer and its precursors; it is not a diagnostic procedure. False negative and false positive results do occur. Pap test results should be interpreted in the context of pertinent clinical information and biopsy results as indicated. Gross Description A. Liquid based Thin Prep pap with Reflex HPV: Cervical/vaginal - Screening ThinPrep-With GC/Chlamydia Clinical Diagnosis and History Last Menstrual Period: unknown The patient is a 29 year old woman with well woman exam. The Gonorrhea/Chlamydia test was performed by [facility], [address] [place] [address]. Report Images and scanned documents, if included only viewable in PDF version The performance characteristics of some immunohistochemical stains, in-situ hybridization and fluorescence in-situ hybridization tests and immunophenotyping by flow cytometry cited in this report (if any) were determined by the Surgical Pathology Department at [facility] as part of an ongoing quality assurance director program and in compliance with federally mandated regulations drawn from the Clinical Laboratory Improvement Act of 1988 (CLIA '88). Some of these tests rely on the use of analyte specific reagents and are subject to specific labeling requirements by the US Food and Drug Administration. Such diagnostic tests may only be performed in a facility that is certified by the Department of Health and Human Services as a high complexity laboratory under CLIA '88. The FDA has determined that such clearance or approval is not necessary. This test is used for clinical purposes. It should not be regarded as investigational or for research. Nevertheless, federal rules concerning the medical use of analyte specific reagents require that the following disclaimer be attached to the report: This test was developed and its performance characteristics determined by the Surgical Pathology Department of [facility]. It has not been cleared or approved by the U. S. Food and Drug Administration. Marga Bardales NP LAB CYTOLOGY ORDERABLES Fin al Result from Last 3 Months or Most Recently Relevant to Health Maintenance Insurance AETNA [facility] IDOH [facility] CHOICE PLUS [facility] IDOH [facility] CHOICE PLUS AETNA [facility] [place] Advance Directives For more information, please contact: [phone] * Full Code (Latest Code Status on File) Date Activated Date Inactivated Comments 10/31/2023 8:28 AM 10/31/2023 2:19 PM * Full Code Date Activated Date Inactivated Comments 01/19/2021 7:35 AM 01/19/2021 2:04 PM * Full Code Date Activated Date Inactivated Comments 01/23/2019 11:16 AM 01/23/2019 7:41 PM * Full Code Date Activated Date Inactivated Comments 09/14/2018 8:14 PM 09/19/2018 9:52 PM Full CPR in c ase of cardiopulmonary arrest Care Teams Scale Mechanic Relationship Specialty Start Date End Date Shelbi Torres NP PCP - General 01/19/21
--- OUTSIDE RECORDS SUMMARY | 2025-01-17 18:50 | XMS_ITS | Encounter Summary ---
Author Organization [facility] Address [address] [place] [address] Phone Care Team Providers Care Sharepoint Architect Name Role Phone Paige Dougherty MD Primary Care Provider Shelbi Torres NP Primary Care Provider [phone] Physician, None Primary Care Provider Unavailabl e Shelbi Torres NP Primary Care Provider [phone] Encounter Details Date Type Department Care Team (Latest Contact Info) Description 09/09/2017 Orders Only [facility] CONVERSION Scanning, Provider Social History Tobacco Use Types Packs/Day Years Used Date Smoking Tobacco: Never Comments Unknown Sex and Gender Information Value Date Recorded Sex Assigned at Not on file Legal Sex Female 10:03 AM INFORMATION SECURITY OFFICER Gender Identity Female 06/12/2021 9:07 AM INFORMATION SECURITY OFFICER Sexual Orientation Straight 06/12/2021 9: 07 AM INFORMATION SECURITY OFFICER documented as of this encounter Plan of Treatment Not on file documented as of this encounter Procedures Procedure Name Priority Date/Time Associated Diagnosis Comments OBSTETRIC/GYNECOLOGY ULTRASONOGRAPHY REPORT 10/09/2017 4:04 PM CDT OBSTETRIC/GYNECOLOGY ULTRASONOGRAPHY REPORT 10/04/2017 12:50 PM CDT OBSTETRIC/GYNECOLOGY ULTRASONOGRAPHY REPORT 09/26/2017 9:55 AM CDT OBSTETRIC/GYNECOLOGY ULTRASONOGRAPHY REPORT 09/18/2017 4:31 PM CDT OBSTETRIC/GYNECOLOGY ULTRASONOGRAPHY REPORT 09/09/2017 6:59 PM CDT documented in this encounter Results * OBSTETRIC/GYNECOLOGY ULTRASONOGRAPHY REPORT (10/09/2017 4:04 PM CDT) Anatomical Region Laterality Modality Ultrasound us Provider Scanning IMG OB US PROCEDURES Final Res ult * OBSTETRIC/GYNECOLOGY ULTRASONOGRAPHY REPORT (10/04/2017 12:50 PM CDT) Anatomical Region Laterality Modality Ultrasound us Provider Scanning IMG OB US PROCEDURES Final Res ult * OBSTETRIC/GYNECOLOGY ULTRASONOGRAPHY REPORT (09/26/2017 9:55 AM CDT) Anatomical Region Laterality Modality Ultrasound us Provider Scanning IMG OB US PROCEDURES Final Res ult * OBSTETRIC/GYNECOLOGY ULTRASONOGRAPHY REPORT (09/18/2017 4:31 PM CDT) Anatomical Region Laterality Modality Ultrasound us Provider Scanning IMG OB US PROCEDURES Final Res ult * OBSTETRIC/GYNECOLOGY ULTRASONOGRAPHY REPORT (09/09/2017 6:59 PM CDT) Anatomical Region Laterality Modality Ultrasound us Provider Scanning IMG OB US PROCEDURES Final Res ult documented in this encounter Visit Diagnoses Not on filedocumented in this encounter Care Teams Sharepoint Architect Relationship Specialty Start Date End Date Paige Dougherty MD [address] [address] PCP - General 11/20/16 08/04/19 Shelbi Torres NP [address] [place] [address] PCP - General Nurse Practitioner 08/05/19 01/15/21 Physician, [place] [address] PCP - General 01/16/21 01/18/21 Shelbi Torres NP [address] [place] [address] PCP - General 01/19/21 documented as of this encounter
--- OUTSIDE RECORDS SUMMARY | 2025-01-17 18:50 | XMS_ITS | Encounter Summary ---
Author Organization [facility] Address [address] [place] [address] Phone Care Team Providers Care Ice Cream Freezer Helper Name Role Phone Shelbi Torres NP Primary Care Provider [phone] Encounter Details Date Type Department Care Team (Latest Contact Info) Description 12/18/2024 Results Follow-Up [facility] Gastroenterology [address] [facility] 2nd Floor [address] [place] [address] Wilton Clark MD [address] [place], [place] [id number] Liver Elastography w/o Imaging W/I&R -[facility] (All Locations) Social History Tobacco Use Types Packs/Day Years Used Date Smoking Tobacco: Never Smokeless Tobacco: Never Alcohol Use Standard Drinks/Week Comments Never 0 [...] relatives? Three times a week 12/08/2021 Attends Confucianism Services Not on file 12/08 Active Member [...] and heating? Not hard at all 12/08/2021 [facility] [place] of Occupat ional Health - Occupational Stress [...] medical appointments or from getting medications? No 07/0 06/2021 In the past 12 months, has [...] place to sleep or slept in a residential (including now)? No 12/08/2021 Personal Safety Answer Date Recorded Have you ever been in or are you currently in a harmful physical or emotional relationship or is someone making you feel afraid or unsafe? 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
--- OUTSIDE RECORDS SUMMARY | 2025-01-17 18:50 | XMS_ITS | Encounter Summary ---
Author Organization [facility] Address [address] [place] [address] Phone Care Team Providers Care Resident Care Assistant Name Role Phone Paige Dougherty MD Primary Care Provider Shelbi Torres NP Primary Care Provider Physician, None Primary Care Provider Unavailabl e Shelbi Torres NP Primary Care Provider [phone] Encounter Details Date Type Department Care Team (Latest Contact Info) Description 08/06/2017 Orders Only [facility] CONVERSION Scanning, Provider Social History Tobacco Use Types Packs/Day Years Used Date Smoking Tobacco: Never Assessed Comments Unknown Sex and Gender Information Value Date Recorded Sex Assigned at Not on file Legal Sex Female 10:03 AM PAINTER AIRCRAFT Gender Identity Female 06/12/2021 9:07 AM PAINTER AIRCRAFT Sexual Orientation Straight 06/12/2021 9: 07 AM PAINTER AIRCRAFT documented as of this encounter Plan of Treatment Not on file documented as of this encounter Procedures Procedure Name Priority Date/Time Associated Diagnosis Comments OBSTETRIC/GYNECOLOGY ULTRASONOGRAPHY REPORT 08/20/2017 4:00 PM CDT OBSTETRIC/GYNECOLOGY ULTRASONOGRAPHY REPORT 08/06/2017 12:00 PM PAINTER AIRCRAFT documented in this encounter Results * OBSTETRIC/GYNECOLOGY ULTRASONOGRAPHY REPORT (08/20/2017 4:00 PM CDT) Anatomical Region Laterality Modality Ultrasound us Provider Scanning IMG OB US PROCEDURES Edited Re sult - Final * OBSTETRIC/GYNECOLOGY ULTRASONOGRAPHY REPORT (08/06/2017 12:00 PM PAINTER AIRCRAFT) Anatomical Region Laterality Modality Ultrasound us Provider Scanning IMG OB US PROCEDURES Final Res ult documented in this encounter Visit Diagnoses Not on filedocumented in this encounter Care Teams Resident Care Assistant Relationship Specialty Start Date End Date Paige Dougherty MD [address] [place] [address] PCP - General 11/20/16 08/04/19 Shelbi Torres NP [address] [place] [address] PCP - General Nurse Practitioner 08/05/19 01/15/21 Physician, [place] [address] PCP - General 01/16/21 01/18/21 Shelbi Torres NP [address] [place] [address] PCP - General 01/19/21 documented as of this encounter
[2025-01-17 19:03] VITALS: BP 151/89; PULSE 95; RESP 18; TEMP 36.2; O2SAT 100
--- OUTSIDE RECORDS SUMMARY | 2025-01-17 19:48 | XMS_ITS | Encounter Summary ---
Author Organization [facility] Address [address] [place] [address] Phone Care Team Providers Care Regulatory And Compliance Technician Name Role Phone Shelbi Torres NP Primary Care Provider [phone] Encounter Details Date Type Department Care Team (Latest Contact Info) Description 12/18/2024 Results Follow-Up [facility] Gastroenterology [address] [facility] [address] [place] [address] Wilton Clark MD [address] [place], [place] [id number] Liver Elastography w/o Imaging W/I&R -[facility] (All Locations) Social History Tobacco Use Types [...] relatives? Three times a week 12/08/2021 Attends [employer]ism Services Not on file 12/08 Active Member [...] and heating? Not hard at all 12/08/2021 [facility] [place] of Occupat ional Health - Occupational Stress [...] place to sleep or slept in a correction (including now)? No 12/08/2021 Personal Safety Answer Date Recorded Have you ever been in or are you currently in a harmful physical or emotional relationship or is someone making you feel afraid or unsafe? 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
--- OUTSIDE RECORDS SUMMARY | 2025-01-17 19:48 | XMS_ITS | Clinical Summary ---
Author Organization [facility] Address [address] [place] [address] Care Team Providers Care Automatic Toe Laster Name Role Phone Shelbi Torres NP Primary Care Provider [phone] Allergies Active Allergy Reactions Criticality Noted Date [...] w/r/t gut microbiome. Referred to ADA and [employer] websites for additional information on topics [...] manifestations: arthralgias. Complications: none. Prior treatments: Remicade ([id number] did well but stopped at time due to insurance issues), Humira ([id number] lack of response), mesalamine-pancreatitis, sulfasalazine-allergic Current treatment: [...] status: Assessment & Plan (06/17/2018 1:00 PM BRANCH CHIEF): Denies issues Hidradenitis suppurativa 10/01/2013 Asthma 05/25/2013 [...] hx NAFLD. 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 Denies pelvic pressure or contractions. Recommend belly band for support and stretching. Crohn's disease of intestine 12/24/2017 12/01/2020 Overview (07/31/2018): Added automatically from request for surgery [id number] BMI 36.0-36.9,adult 11/05/2017 03/25/20 20 Crohn's disease 10/10/2017 12/01/2020 Prior with demise 10/10/2017 03/20/2021 Overview (06/17/2018): - previous was complicated by a cystic hygroma, normal DATA PROCESSING OPERATOR/karyotype, and heterotaxy with multiple anomalies. This ultimately [...] Type Department Care Team Description 01/12/2025 Documentation [facility] [address] [place] [address] 12th [place] [address] Rosita Taylor, JENISE Treatment Plan Update (01/08/2025 rov) 01/08/2025 3:30 PM CDT Telemedicine [facility] [address] [place] [address] 12th [place] [address] Mary Sheets NP High risk medications (not anticoagulants) long-term use (Primary Dx); Crohn's disease of large intestine without complication (HCC) 12/18/2024 9:45 AM CDT Procedure visit [facility] G[facility]enter[facility] [address] [place] [address] Floor [address] [place] [address] Hepatic steatosis 12/18/2024 9:30 AM CDT Office Visit [facility] [address] [place] [address] Wilton Clark MD Primary hypertension (Primary Dx); [...] 39.9 in adult (HCC) 12/18/2024 Results Follow-Up [facility] [address] [place] [address] [place] [phone] Wilton Clark MD Liver Elastography w/o Imaging W/I&R -[facility] (All Locations) 11/30/2024 10:40 AM CDT Office Visit [facility]enter[facility] [address] [facility] [address] [place] [address] Elsy Delatorre NP NAFLD (nonalcoholic fatty liver disease) (Primary Dx) 11/30/2024 Telephone [facility]enter[facility] [address] [facility] [address] [place] [address] Elsy Delatorre NP 11/20/2024 9:50 AM CDT - 11/20/2024 11:59 PM CDT Hospital Encounter [facility] [address] [place] [address] Crohn's disease of large intestine without complication (HCC) Discharge Disposition: Discharge to home or self care 11/20/2024 9:30 AM CDT Infusion [facility] Infusion Therapy [address] [facility] [address] 2nd [address] [place] [address] Crohn's disease of large intestine without complication (HCC) (Primary Dx) 11/17/2024 Documentation [facility]astroenterology [address] [facility] 12th [place] [address] [place] [address] Rosita Taylor, JENISE Clinical Visit from Last [...] 12/01/2018, Surgical History Surgery Date Site/Laterality Comments [place] COLONOSCOPY FLX DX W/KELY J SPEC WHEN PFRMD Complete Colonoscopy - (Added by TW Conv) [place] ESOPHAGOGASTRODUODENOSCOP Y TRANSORAL DIAGNOSTIC Diagnostic Esophagogastroduodenoscopy - [...] was complicated by a cystic hygroma, normal DATA PROCESSING OPERATOR/karyotype, and heterotaxy with multiple anomalies. This ultimately [...] relatives? Three times a week 12/08/2021 Attends [employer] Services Not on file 12/08 Active Member [...] and heating? Not hard at all 12/08/2021 [facility] [place] [facility] - Occupational Stress [...] place to sleep or slept in a long-term (including now)? No 12/08/2021 Personal Safety Answer Date Recorded Have you ever been in or are you currently in a harmful physical or emotional relationship or is someone making you feel afraid or unsafe? 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 T-SPOT.TB Panel A Spot Count 2 [facility] T-SPOT.TB Panel B Spot Count 0 [facility] T-SPOT.TB Negative Control Passed [facility] T-SPOT.TB Positive Control Passed [facility] Comment: Test Performed at: [facility] [address] LEONARDO CORRAL,PHD Blood 11/20/2024 9:50 AM CDT 11/20/2024 3:26 PM CDT Mile Gandhi MD LAB MICROBIOLOGY - GENERAL OR DERABLES Final Result [facility] [place] [address] * eGFR (11/20/2024 9:50 AM CDT) eGFR [...] MD LAB BLOOD ORDERABLES Final Re sult [facility] [place] [address] * Differential, auto (11/20/2024 9:50 AM CDT) Neutrophil abs 3.25 1.50 - 6.50 K/cumm Imm gran abs 0.03 0.00 - 0.10 K/cumm [facility] Lymphocyte abs 2.75 0.80 - 3.30 K/cumm [facility] Monocyte abs 0.57 0.20 - 0.80 K/cumm [facility] Eosinophil abs 0.32 0.00 - 0.50 K/cumm [facility] Basophil abs 0.03 0.00 - 0.10 K/cumm [facility] Neutrophil pct 46.8 % [facility] Comment: Interpretive Data Percent cell count reference ranges are not reported, since discordance with absolute values may lead to misinterpretation of CBC data. Current Interpretive Data was last revised on 2017. Imm gran pct 0.4 % [facility] Comment: Interpretive Data Percent cell count reference ranges are not reported, since discordance with absolute values may lead to misinterpretation of CBC data. Current Interpretive Data was last revised on 2017. Lymphocyte pct 39.6 % [facility] Comment: Interpretive Data Percent cell count reference ranges are not reported, since discordance with absolute values may lead to misinterpretation of CBC data. Current Interpretive Data was last revised on 2017. Monocyte pct 8.2 % [facility] Comment: Interpretive Data Percent cell count reference ranges are not reported, since discordance with absolute values may lead to misinterpretation of CBC data. Current Interpretive Data was last revised on 2017. Eosinophil pct 4.6 % [facility] Comment: Interpretive Data Percent cell count reference ranges are not reported, since discordance with absolute values may lead to misinterpretation of CBC data. Current Interpretive Data was last revised on 2017. Basophil pct 0.4 % [facility] Comment: Interpretive Data Percent cell count reference ranges are not reported, since discordance with absolute values may lead to misinterpretation of CBC data. Current Interpretive Data was last revised on 2017. Blood 11/20/2024 9:50 AM CDT 11/20/2024 2:38 PM CDT Mile Gandhi MD LAB BLOOD ORDERABLES Final Re sult [facility] [place] [address] * (ABNORMAL) CBC with auto differential (11/20/2024 9:50 AM CDT) WBC 6.95 3.80 - 9.90 K/cumm Hgb 12.3 11.9 - 15.5 g/dL [facility] Hct 38.5 35.6 - 45.5 % [facility] Plt 263 150 - 400 K/cumm [facility] MPV 10.8 9.1 - 12.3 fL [facility] RBC 4.49 3.90 - 5.20 M/cumm [facility] MCV 85.7 81.3 - 96.4 fL [facility] MCH 27.4 27.1 - 33.3 pg [facility] MCHC 31.9(L) 32.3 - 35.7 g/dL [facility] RDW CV 15.1(H) 11.1 - 14.9 % [facility] RDW SD 47.2 35.7 - 48.1 fL [facility] NRBC abs 0.00 0.00 - 0.01 K/cumm [facility] Blood 11/20/2024 9:50 AM CDT 11/20/2024 2:38 PM CDT Mile Gandhi MD LAB BLOOD ORDERABLES Final Re sult Performing Organization Address City/[facility]/ZIP Co de Phone Number [facility] [place] [address] * CRP (acute phase) (11/20/2024 9:50 AM CDT) [facility] CRP 1.9 <=10.0 mg/L Blood 11/20/2024 9:50 AM CDT 11/20/2024 2:38 PM CDT Mile Gandhi MD LAB BLOOD ORDERABLES Final Re sult Performing Organization Address [facility] de Phone Number [facility] [place] [address] * (ABNORMAL) Comprehensive metabolic panel (11/20/2024 9:50 AM CDT) [facility] Sodium 139 135 - 145 mmol/L Potassium, pl 3.8 3.3 - 4.9 mmol/L [facility] Chloride 104 97 - 110 mmol/L [facility] CO2 23 22 - 32 mmol/L [facility] Anion gap 12 2 - 15 mmol/L [facility] BUN 9 6 - 25 mg/dL [facility] Creatinine 0.57(L) 0.60 - 1.10 mg/dL [facility] Glucose 79 70 - 199 mg/dL [facility] Comment: Interpretive Data Fasting glucose >/= [...] 2022. Calcium 9.3 8.5 - 10.3 mg/dL [facility] Bilirubin, total 0.4 0.1 - 1.2 mg/dL [facility] Protein, pl 7.8 6.5 - 8.5 g/dL [facility] Albumin 4.2 3.5 - 5.0 g/dL [facility] Alk phos 138(H) 40 - 130 Units/L [facility] ALT 57(H) 7 - 45 Units/L [facility] AST 53(H) 10 - 45 Units/L [facility] Blood Venous blood specimen / Unknown 11/20/2024 9:50 AM CDT 11/20/2024 2:38 PM CDT Mile Gandhi MD LAB BLOOD ORDERABLES Final Re sult [facility] [place] [address] * Hepatitis C antibody (03/16/2020 12:04 PM CDT) Hep C Ab Nonreactive Nonreactive [facility] Comment:Antibodies to HCV no t detected. Does NOT exclude the possibility of recent exposure to HCV. Blood specimen (specimen) 03/16/2020 12:04 PM CDT 03/16/2020 12:33 PM CDT Wilton Clark MD LAB MICROBIOLOGY - GENER AL ORDERABLES Edited Result - Final [facility] [place] [address] * Pap w/reflex to High Risk HPV if ASCUS and patient 21-29 years old (02/04/2020 3:13 PM CDT) 02/04/2020 3:13 PM CDT 02/04/2020 3:41 PM CDT Narrative 02/09/2020 9:57 AM CDT EPIC results best viewed via link to PDF [facility] [place] [id number] CYTOPATHOLOGY REPORT FINAL Patient Name: BRYSON ALMARAZ Gender: F : 1990 (Age: 29) Address: [address] [place] [address] Hospital #: [id number] Service: Gynecology Location: [facility] Patient Type: [facility] Ancillary Taken: 02/04/2020 Received: 02/04/2020 Accessioned: 02/05/2020 [...] The Gonorrhea/Chlamydia test was performed by [facility], [address] [place] [address]. Report Images and scanned documents, if included only viewable in PDF version The performance characteristics of some immunohistochemical stains, in-situ hybridization and fluorescence in-situ hybridization tests and immunophenotyping by flow cytometry cited in this report (if any) were determined by the Surgical Pathology Department at [facility] as part of an ongoing supplier quality engineering manager program and in compliance with federally mandated [...] determined by the Surgical Pathology Department of [facility]. It has not been cleared or approved by the U. S. Food and Drug Administration. Marga Bardales NP LAB CYTOLOGY ORDERABLES Fin al Result from Last 3 Months or Most Recently Relevant to Health Maintenance Insurance [employer] [facility] HMO/PPO Address: [id number] [place] [id number] [facility] CHOICE [facility]US [facility] H[facility]/PPO Address: [address] [address] [place] [address] [employer] [facility] [place] Advance Directives For more information, please contact: [phone] * Full Code (Latest Code Status on [...] c ase of cardiopulmonary arrest Care Teams Automatic Toe Laster Relationship Specialty Start Date End Date Shelbi Torres NP PCP - General 01/19/21
--- OUTSIDE RECORDS SUMMARY | 2025-01-17 19:48 | XMS_ITS | Encounter Summary ---
Author Organization [facility] Address [address] [place] [address] Phone Care Team Providers Care Residential Housekeeper Name Role Phone Paige Dougherty MD Primary Care Provider Shelbi Torres NP Primary Care Provider [phone] Physician, None Primary Care Provider Unavailabl e Shelbi Torres NP Primary Care Provider [phone] Encounter Details Date Type Department Care Team (Latest Contact Info) Description 08/06/2017 Orders Only [facility] CONVERSION Scanning, Provider Social History Tobacco Use Types Packs/Day Years Used Date Smoking Tobacco: Never Assessed Comments Unknown Sex and Gender Information Value Date Recorded Sex Assigned at Not on file Legal Sex Female 10:03 AM PRIZER HAND Gender Identity Female 06/12/2021 9:07 AM PRIZER HAND Sexual Orientation Straight 06/12/2021 9: 07 AM PRIZER HAND documented as of this encounter Plan of Treatment Not on file documented as of this encounter Procedures Procedure Name Priority Date/Time Associated Diagnosis Comments OBSTETRIC/GYNECOLOGY ULTRASONOGRAPHY REPORT 08/20/2017 4:00 PM CDT OBSTETRIC/GYNECOLOGY ULTRASONOGRAPHY REPORT 08/06/2017 12:00 PM PRIZER HAND documented in this encounter Results * OBSTETRIC/GYNECOLOGY ULTRASONOGRAPHY REPORT (08/20/2017 4:00 PM CDT) Anatomical Region Laterality Modality Ultrasound us Provider Scanning IMG OB US PROCEDURES Edited Re sult - Final * OBSTETRIC/GYNECOLOGY ULTRASONOGRAPHY REPORT (08/06/2017 12:00 PM PRIZER HAND) Anatomical Region Laterality Modality Ultrasound us Provider Scanning IMG OB US PROCEDURES Final Res ult documented in this encounter Visit Diagnoses Not on filedocumented in this encounter Care Teams Residential Housekeeper Relationship Specialty Start Date End Date Paige Dougherty MD [address] [place] [address] PCP - General 11/20/16 08/04/19 Shelbi Torres NP [address] [place] [address] PCP - General Nurse Practitioner 08/05/19 01/15/21 Physician, [place] [address] PCP - General 01/16/21 01/18/21 Shelbi Torres NP [address] [place] [address] PCP - General 01/19/21 documented as of this encounter
--- OUTSIDE RECORDS SUMMARY | 2025-01-17 19:48 | XMS_ITS | Encounter Summary ---
Author Organization [facility] Address [address] [place] [address] Phone Care Team Providers Care Cashier And Salesperson Name Role Phone Paige Dougherty MD Primary Care Provider Shelbi Torres NP Primary Care Provider [phone] Physician, None Primary Care Provider Unavailabl e Shelbi Torres NP Primary Care Provider [phone] Encounter Details Date Type Department Care Team (Latest Contact Info) Description 09/09/2017 Orders Only [facility] CONVERSION Scanning, Provider Social History Tobacco Use Types Packs/Day Years Used Date Smoking Tobacco: Never Comments Unknown Sex and Gender Information Value Date Recorded Sex Assigned at Not on file Legal Sex Female 10:03 AM PRINTS AND DRAWINGS CURATOR Gender Identity Female 06/12/2021 9:07 AM PRINTS AND DRAWINGS CURATOR Sexual Orientation Straight 06/12/2021 9: 07 AM PRINTS AND DRAWINGS CURATOR documented as of this encounter Plan of [...] on filedocumented in this encounter Care Teams Cashier And Salesperson Relationship Specialty Start Date End Date Paige Dougherty MD [address] [address] PCP - General 11/20/16 08/04/19 Shelbi Torres NP [address] [place] [address] PCP - General Nurse Practitioner 08/05/19 01/15/21 Physician, [place] [address] PCP - General 01/16/21 01/18/21 Shelbi Torres NP [address] [place] [address] PCP - General 01/19/21 documented as of this encounter
[2025-01-17 19:54] LABS: Hematocrit 36.9 % (37.0-47.0); Hemoglobin 11.9 g/dL (12.0-15.0); Immature Granulocyte Percent A 0.4 % (0-0.5); Lymphocytes Absolute Auto 2.38 K/mm3 (0.9-3.2); Mean Corpuscular HGB Conc 32.2 g/dl (32-36); Mean Corpuscular Hemoglobin 27.9 pg (26-34); Mean Corpuscular Volume 86.4 fl (80-100); Nucleated Red Blood Cells Absolute Auto 0.000 K/mm3 (0.0-0.012); Nucleated Red Blood Cells Perc 0.0 % (0.0-0.2); Platelet Count Result 241 k/mm3 (150-375); Red Blood Count 4.27 M/mm3 (4.2-5.4); White Blood Count 7.5 K/mm3 (4.5-10.0)
[2025-01-17 19:57] LABS: Alanine Aminotransferase 82 U/L (6-35); Albumin Level 4.3 g/dL (3.5-5.1); Alkaline Phosphatase 133 U/L (38-126); Anion Gap 8 mmol/L (4-12); Aspartate Amino Transferase 93 U/L (14-36); Bilirubin,Total 0.5 mg/dL (0.2-1.3); Blood Urea Nitrogen 11 mg/dL (7-17); Calcium 9.4 mg/dL (8.4-10.2); Carbon Dioxide 25 mmol/L (22-30); Chloride 102 mmol/L (98-107); Estimated CRCL calculation 103 ml/min; Estimated Glomerular Filt Rate > 60; Glucose 105 mg/dL (65-110); Lipase 59 U/L (23-300); Potassium 3.9 mmol/L (3.4-5.0); Sodium 135 mmol/L (137-145); Total Protein 7.8 g/dL (6.3-8.2)
--- NOTE | 2025-01-17 20:12 | ED_ITS ---
HPI - Abdominal Pain General Chief Complaint: Abdominal Pain Stated Complaint: lower abd pain Time Seen by Provider: 01/17/25 19:31 Source: patient Mode of arrival: ambulatory Limitations: no limitations History of Present Illness HPI narrative: This is a 34 year old female that presents to the ER for right-sided abdominal pain. Ongoing since this morning. No associated symptoms. Denies fever, vomiting, diarrhea, dysuria. Related Data Allergies Allergy/AdvReac Type Severity Reaction Status Date / Time mesalamine (From Asacol) Allergy Unknown Verified 12/28/20 18:28 sulfabenzamide Allergy Unknown Verified 12/28/20 18:27 Review of Systems 2 Review of Systems: All systems reviewed & are unremarkable except as noted in HPI and below PMFSH Past Medical History Medical History (Updated 01/17/25 @ 23:09 by Elys Hale PA-C) Migraine Surgical History Surgical History (Updated 09/05/22 @ 10:39 by Saman Boykin MD) History of delivery Family History Family History (Updated 02/04/14 @ 07:13 by DOCTOR UNKNOWN) Father Family history of gout Family history of psoriasis Social History Social History Smoking status: Never smoker Alcohol intake: never Gender identity (if verbalized by the patient): Female Exam 2 Narrative: GENERAL: Well-appearing, well-nourished, and in no acute distress. HEAD: Normocephalic, atraumatic. EYES: EOMI. CHEST: Clear to auscultation. No respiratory distress. No wheezes rales or rhonchi HEART: Regular rate and rhythm. No murmur heard. Normal peripheral pulses. ABDOMEN: Soft, nondistended, normal active bowel sounds. Mild tenderness to palpation in the right upper quadrant, without guarding EXTREMITIES: Normal range of motion. No edema. SKIN: Warm, dry, no rash. NEURO: No focal deficits. Alert and oriented x3. PSYCH: Normal mood and affect Course Course Emergency Course: Patient updated on her workup and agrees with plan of care Vital Signs Vital signs: Vital Signs Temperature 97.1 F L 01/17/25 19:03 Pulse Rate 95 01/17/25 19:03 Respiratory Rate 18 01/17/25 19:03 Blood Pressure 151/89 H 01/17/25 19:03 Pulse Oximetry 100 01/17/25 19:03 Oxygen Delivery Room Air 01/17/25 19:03 Temperature 97.1 F L 01/17/25 19:03 Pulse Rate 86 01/17/25 22:47 Respiratory Rate 26 H 01/17/25 22:47 Blood Pressure 154/96 H 01/17/25 22:47 Pulse Oximetry 98 01/17/25 22:47 Oxygen Delivery Room Air 01/17/25 19:03 MDM - Abdominal Pain MDM Narrative Medical decision making narrative: Patient presents emergency department for right upper quadrant abdominal pain. Ongoing since this morning. Patient is afebrile and nontoxic appearing. Cbc without leukocytosis. Metabolic panel with transaminitis, which appears chronic for patient. Lipase is normal. Urine without evidence of infection. test is negative. CT abdomen and pelvis shows some mild inflammatory changes of the gallbladder. Bilateral ovarian cysts. Patient updated on her workup and agrees with plan of care. Instructed on low-fat diet, will be given follow-up with general surgery. She was given warnings to return to the ER Differential Diagnosis Differential diagnosis: Likely calculus of kidney, diverticulitis, pancreatitis and other (Biliary colic) Lab Data Attestation: I reviewed the patient's lab results. 01/17/25 19:43 01/17/25 19:43 Labs: Lab Results 01/17/25 01/17/25 01/17/25 Range/Units 19:43 20:49 20:50 WBC 7.5 (4.5-10.0) K/mm3 RBC 4.27 (4.2-5.4) M/mm3 Hgb 11.9 L (12.0-15.0) g/dL Hct 36.9 L (37.0-47.0) % MCV 86.4 (80-100) fl MCH 27.9 (26-34) pg MCHC 32.2 (32-36) g/dl RDW 14.6 H (11.5-14.5) % Plt Count 241 (150-375) k/mm3 MPV 10.0 (7.4-10.4) fl Immature Gran % (Auto) 0.4 (0-0.5) % Neut % (Auto) 56.1 (45.5-73.1) % Lymph % (Auto) 31.8 (18.3-44.2) % [place] % (Auto) 7.3 (2.6-8.5) % Eos % (Auto) 4.0 (0-4.4) % Baso % (Auto) 0.4 (0.2-1.2) % Lymph # (Auto) 2.38 (0.9-3.2) K/mm3 [place] # (Auto) 0.6 (0.1-0.6) K/mm3 Eos # (Auto) 0.3 (0-0.3) K/mm3 Baso # (Auto) 0.0 (0.0-0.1) K/mm3 Abs Immat Gran (auto) 0.03 (0.00-0.031) K/mm3 Absolute Neuts (auto) 4.2 (1.3-6.7) K/mm3 Absolute Nucleated RBC 0.000 (0.0-0.012) K/mm3 Nucleated RBC % 0.0 (0.0-0.2) % Sodium 135 L (137-145) mmol/L Potassium 3.9 (3.4-5.0) mmol/L Chloride 102 (98-107) mmol/L Carbon Dioxide 25 (22-30) mmol/L Anion Gap 8 (4-12) mmol/L BUN 11 (7-17) mg/dL Creatinine 0.69 L (0.7-1.0) mg/dL Estim Creat Clear Calc 103 ml/min Estimated GFR > 60 (59 - ) Glucose 105 (65-110) mg/dL Calcium 9.4 (8.4-10.2) mg/dL Total Bilirubin 0.5 (0.2-1.3) mg/dL AST 93 H (14-36) U/L ALT 82 H (6-35) U/L Alkaline Phosphatase 133 H (38-126) U/L Total Protein 7.8 (6.3-8.2) g/dL Albumin 4.3 (3.5-5.1) g/dL Lipase 59 (23-300) U/L Urine Color Yellow (Yellow) Urine Appearance Clear (Clear) Urine pH 6.5 (5.0-9.0) Ur Specific [place] 1.023 (1.001-1.035) Urine Protein Negative (Negative) mg/dL Urine Glucose (UA) Negative (Negative) mg/dL Urine Ketones Negative (Negative) mg/dL Ur Blood (Man) Negative (Negative) Urine Nitrate Negative (Negative) Urine Bilirubin Negative (Negative) Urine Urobilinogen 1.0 (<2.0) mg/dL Leukocyte Esterase Rfl Negative (Negative) SHELBY/UL POC Urine HCG, Qual Negative (Negative) Imaging Data Radiologist's impression: ITS Impressions Abdomen/Pelvis CT 01/17/25 21:10 IMPRESSION: Contracted gallbladder which limits evaluation, with mucosal hyperemia and the suggestion of mild inflammatory change. Correlate for signs/symptoms of acute cholecystitis. 6.6 cm simple appearing left ovarian cyst. 3.3 cm indeterminate density right ovarian cyst, likely representing a corpus luteum, endometrioma, or hemorrhagic cyst. Critical Care Time Critical Care Time Critical Care Time: No Discharge Plan Discharge Clinical Impression: Biliary colic Patient Disposition: Home Condition: Stable Instructions: Biliary Colic (ED), Low Fat Diet (ED) Additional Instructions: Return to the ER if you experience fever, abdominal pain with nausea and vomiting, you are unable to keep down liquids or solids, or any other symptoms that are concerning to you Remain well hydrated. Over the counter pain medication as needed. Prescribed pain medication as needed. Low fat diet Follow up with general surgery Patient Language: Armenian Prescriptions: New hydrocodone-acetaminophen 5-325 mg tablet 1 tablet PO Q6H PRN (Reason: pain) Qty: 20 0RF Follow-up/Referrals: Emeli Sellers MD [Physician] - PHYSICIAN,RADIATOR TESTER [Primary Care Provider] -
[2025-01-17 20:52] LABS: BEDSIDEPREGUCG Negative (Negative)
[2025-01-17 20:56] LABS: Add Urine Microscopic? NO; Appearance Urine Clear (Clear); Glucose Urine UA Negative (Negative); Leukocyte Esterase Ur Negative LEU/UL (Negative); Nitrate Urine Negative (Negative); Specific Grav Ur 1.023 (1.001-1.035)
[2025-01-17 21:16] VITALS: BP 139/80; PULSE 88; RESP 20; O2SAT 99
[2025-01-17 22:47] VITALS: BP 154/96; PULSE 86; RESP 26; O2SAT 98
[2025-01-17] MEDS: KETOROLAC 15 MG/ML VIAL (*BKC) IV PUSH (23:24)
[2025-01-17 23:28] VITALS: BP 149/92; PULSE 78; RESP 21; TEMP 36.7; O2SAT 98
[2025-01-17 23:30] VITALS: BP 149/92; PULSE 78; RESP 21; TEMP 36.7; O2SAT 98
== END 2025-01-17 23:32 | disposition home or self-care (01) ==
PROVIDERS: Emergency Provider Physician Assistant
DX: R10.11 Right upper quadrant pain (principal); N83.201 Unspecified ovarian cyst, right side; N83.292 Other ovarian cyst, left side; R93.2 Abnormal findings on diagnostic imaging of liver and biliary tract
CPT/HCPCS: 36415; 74177; 80053; 81003; 81025; 83690; 85025; 96374; 99284; J1885; Q9967